=== PATIENT | female | born 1985 | race Caucasian/White ===

== ENCOUNTER 2016-10-12 14:05 | Emergency (ER) | payer OTHER, MEDICAID ==
--- NOTE | 2016-10-12 14:28 | ER Document Report ---
Addendum entered and electronically signed by JOSE MANUEL CHOUDHURY LCSWA 10/14/16 09: 53: ED Psych Disorder / Suicide - General Chief Complaint: Psych Problem Stated Complaint: SUICIDAL IDEATION Time Seen by Provider: 10/12/16 14:11 TRAVEL OUTSIDE OF THE [place] IN LAST 30 DAYS: No - HPI Notes: Clinician conducted check in with patient:10/14/2013 Patient states she is feeling calmer. Patient is noted to have euthymic mood with congruent affect ie smiling. Patient's conversational speech is also noted to be soft; no longer harsh as previously observed. Patient states she would like to go home but understands that a strong discharge plan would need to be in place since she previously had suicidal thoughts. Patient denies current suicidal/homicidal ideation. Patient's mother, Amber [phone] Clinician discussed with patient and mother the need to take medication and receive therapeutic services. Patient's mother agrees to be part of discharge plan to ensure the patient has no access to weapons or medications and follows up with outpatient mental health services. Diagnosis: 296.80 (F31.9) Unspecified Bipolar and Related Disorder by History, current episode Depressed Impression/Plan: Recommendation to rescind IVC; patient is considered psychiatrically cleared for discharge. Patient no longer meets IVC criteria per [place] GS 122C. Patient denies current suicidal ideation. Patient's affect and mood has been observed to return to baseline. Patient's current needs would be more appropriately addressed with therapeutic intervention with medication management in an outpatient setting. Patient's mother agrees to be part of discharge plan to ensure the patient has no access to weapons or medications and follows up with outpatient mental health services. Patient is recommended to receive Dialectical behavior therapy (DBT) and continued services with [facility] for medication management. Consulted with Dr. Ro regarding the management and care of patient. ED Physician in agreement with recommendations. - Related Data Allergies/Adverse Reactions: No Known Allergies Allergy (Verified 02/14/16 09:38) Discharge - Discharge Clinical Impression: Bipolar I disorder Condition: Stable Disposition: HOME, SELF-CARE Additional Instructions: Bipolar Disorder Bipolar disorder is also called manic-depressive disorder. Depression alternates with brain hyperactivity called indio. Each phase lasts from several days to a few weeks. We don't know exactly what causes bipolar disorder , but it's treatable. During the "manic phase," you may feel elated and energetic. You may have racing thoughts, rapid speech, increased activity, and grandiose ideas. During this time, you may not realize how poor your judgement is. Inappropriate spending, drug abuse, excessive alcohol use, marriage problems, and irresponsible sexual behavior are common during the manic phase. During the "depressive phase," you might feel depressed, guilty, worthless , fatigued, and unable to concentrate. You might have thoughts of suicide. Good treatments are available for bipolar disorder. [place] is a classic drug for bipolar disorder, and is still often useful. If the manic phase is very mild, an antidepressant alone can be prescribed. If the manic phase is very severe, an antipsychotic medicine (such as Haldol) may be needed. The treatment must be matched to your symptoms, so it's important to work closely with your psychiatric care provider. Contact your physician, the hospital emergency center, crisis line, or your counsellor if you are losing control or having self-destructive thoughts. SUICIDAL IDEATION: Suicidal ideation is a common medical term for thoughts about suicide, which may be as detailed as a formulated plan, without the suicidal act itself. Although most people who undergo suicidal ideation do not commit suicide, some go on to make suicide attempts. The range of suicidal ideation varies greatly from fleeting to detailed planning, role playing, and unsuccessful attempts. While thoughts about suicide are common, most people do not carry out serious actions to commit suicide. Based upon your evaluation and discussion with you, we do not believe you are currently at risk to act upon your thoughts of suicide. You have agreed to return to the Emergency Department, at any time , if you feel inclined to act upon your suicidal thoughts. FOLLOW-UP CARE: Please follow up with your outpatient mental health provider, [facility] in 3-5 days. You are recommended to receive Dialectical behavior therapy (DBT) in addition to medication management. If you experience worsening or a significant change in your symptoms, notify the physician immediately or return to the Emergency Department at any time for re-evaluation. Referrals: [facility] [Outside] - Follow up in 3-5 days Addendum entered and electronically signed by JOSE MANUEL CHOUDHURY LCSWA 10/13/16 13: 27: ED Psych Disorder / Suicide - General Chief Complaint: Psych Problem Stated Complaint: SUICIDAL IDEATION Time Seen by Provider: 10/12/16 14:11 TRAVEL OUTSIDE OF THE [place] IN LAST 30 DAYS: No - HPI Notes: Clinician conducted check in with patient: Patient is irritable with restricted affect. Patient's mother is at bedside. Patient states she is upset because her mental health provider did not change her medications, [facility] did. She continued to state she wanted [facility] to make those changes. Patient stated she was not even on an antidepressant, and she never took her Xanax she "flushed them down the toilet" so she should still have that prescription. Patient then stated she wanted to go home. Patient then stated she did not want her uncle walking in front of her door. Patient's mother states that even last night in the ED the patient was stating how she wants to kill herself. Patient's mother was able to calm the patient so she could understand the plan of care ie. changing medications and coming up with a discharge plan after therapeutic levels are achieved. Patient's mother states her paternal uncle is a security program manager here at [facility] and there is family friction and also requested he not been by her room. Diagnosis: 296.80 (F31.9) Unspecified Bipolar and Related Disorder by History, current episode Depressed Impression/Plan: Recommendation to continued IVC. Patient is irritable and still endorsing suicidal ideation. Patient requested staff member that is family to not walk past her room; clinician passed request on to security. Patient will be re-evaluated; possible discharge once therapeutic levels with medications. Consulted with Dr. Ro regarding the management and care of patient. ED Physician in agreement with recommendations. - Related Data Allergies/Adverse Reactions: No Known Allergies Allergy (Verified 02/14/16 09:38) Addendum entered and electronically signed by JEWELL ECHEVARRIA LPC 10/13/16 09: 40: ED Psych Disorder / Suicide - General Chief Complaint: Psych Problem Stated Complaint: SUICIDAL IDEATION Time Seen by Provider: 10/12/16 14:11 TRAVEL OUTSIDE OF THE [place] IN LAST 30 DAYS: No - HPI Notes: Conducted initial psychiatric evaluation on 10/12/2016 at 1555. Patient is a 31 year old female who presented to the ED today via EMS for SI. Patient reported she has had a lot going on, which started before today, and over time it has all built up. She stated she has relationship issues with her mother and brother, issues with her children, and legal issues. Patient became tearful when identifying her stressors. She stated "mentally and physically I am exhausted and done." She acknowledged her mother contacted her Medical Superintendent today, regarding her demeanor and behaviors, who suggested EMS be called so patient could be psychiatrically evaluated in the ED. She reported she has not taken her psychiatric medications prescribed by [facility] in 1-2 weeks because she "didn't feel like they were helping so why take them if they are not working." She could not provide names of medications but had brought the actual pill bottles with her and the attending nurse recorded them for lock up. They included: Saphris, Escitalopram, Gabapentin, Oxycarbazepine, and One A Day energy. She reported SI and commented how the last time she felt this way was 2014 when had an intentional overdose. She denied previous MH hospitalizations. Patient was alert and oriented x4. Mood was depressed with congruent affect AEB being tearful. She reported SI and a previous OD in 2014. She did not appear to be responding to internal stimuli AEB fair eye contact and carrying on dialogue conversation. Thought processes were linear. Conversational speech was soft in tone yet audible and understandable. Intellectual abilities are estimated to be average. Insight, judgment and impulse control are poor AEB depressed mood. Patient gave verbal consent to contact her youngest child's father, Ney ) for collateral if needed. Diagnosis: 296.80 (F31.9) Unspecified Bipolar and Related Disorder by History, current episode Depressed Impression/Plan: Recommendation to IVC patient. She reported SI, intentional OD attempt in 2014, presented with depressed mood, was tearful and unable to stop crying when identifying stressors, and has been of her prescribed psychiatric medications for 1-2 weeks. Will begin medication regimen and reassess in the morning. Consulted with Dr. Ro regarding the management and care of patient. ED Physician in agreement with recommendations. - Related Data Allergies/Adverse Reactions: No Known Allergies Allergy (Verified 02/14/16 09:38) Original Note: ED Psych Disorder / Suicide - General Chief Complaint: Psych Problem Stated Complaint: SUICIDAL IDEATION Time Seen by Provider: 10/12/16 14:11 Notes: Patient's been patient was brought to the emergency department by EMS after feeling suicidal. Patient receives care for bipolar disorder, depression, and anxiety at [facility], last visit about 2 weeks ago. Since that visit, she has not taken any of her medications because she does not think they are helping. Patient says that she cannot eat. Says that she has lost 6 pounds since last Monday, 5 days ago. She is tearful and says that she has felt this way before and attempted an overdose in the past. Currently, she is living with her mother and brother along with her 3 children, and she is not comfortable there. TRAVEL OUTSIDE OF THE [place] IN LAST 30 DAYS: No - Related Data Allergies/Adverse Reactions: No Known Allergies Allergy (Verified 02/14/16 09:38) Past Medical History - Social History Smoking Status: Current Every Day Smoker Family History: Reviewed & Not Pertinent Endocrine Medical History: Denies: Hx Diabetes Mellitus Type 2 Psychiatric Medical History: Reports: Hx Anxiety, Hx Bipolar Disorder, Hx Depression - Immunizations Immunizations up to date: Yes Hx Diphtheria, Pertussis, Tetanus Vaccination: Yes - 01/08/13 Review of Systems - Review of Systems Notes: REVIEW OF SYSTEMS: CONSTITUTIONAL : Denies fever. EENT: Denies eye, ear, nose or mouth or throat pain or other symptoms. CARDIOVASCULAR: Denies chest pain. RESPIRATORY: Denies cough, chest congestion, or shortness of breath. GASTROINTESTINAL: Denies abdominal pain or nausea, vomiting, or diarrhea. GENITOURINARY: Denies difficulty or painful urinating, urinary frequency, blood in urine. MUSCULOSKELETAL: Denies back or neck pain. Denies joint pain or swelling. SKIN: Denies rash or skin lesions. NEUROLOGICAL: Denies LOC or altered mental status. Denies headache. Denies sensory loss or motor deficits. ALL OTHER SYSTEMS REVIEWED AND NEGATIVE. Physical Exam - Vital signs Interpretation: Normal - Notes Notes: PHYSICAL EXAMINATION: GENERAL: Well-appearing, in no acute distress except tearful and depressed. Vital signs are all normal. HEAD: Atraumatic, normocephalic. EYES: Pupils equal round and reactive to light, extraocular movements intact. Oral: Moist mucous membranes embranes. NECK: Normal range of motion, supple. LUNGS: Breath sounds clear and equal bilaterally. HEART: Regular rate and rhythm without murmurs. ABDOMEN: Soft, nontender. No guarding or rebound. BACK: No tenderness throughout entire back. EXTREMITIES: Normal range of motion without pain. NEUROLOGICAL: Normal speech, normal gait. Normal sensory, motor, and reflex exams. Awake, alert, and oriented x3. Cranial nerves normal. PSYCH: Depressed. Tearful. SKIN: Warm, dry, no rashes. Course - Re-evaluation Re-evalutation: 10/12/16 14:28 I will have mental health evaluate the patient.
[2016-10-12 14:54] LABS: ABSOLUTE BASOPHILS # (AUTO) 0.1 10^3/uL (0.0-0.2); ABSOLUTE EOSINOPHILS # (AUTO) 0.2 10^3/uL (0.0-0.6); ABSOLUTE LYMPHOCYTES (AUTO) 2.7 10^3/uL (0.5-4.7); ABSOLUTE MONOCYTES (AUTO) 0.5 10^3/uL (0.1-1.4); ABSOLUTE NEUT (AUTO) 5.3 10^3/uL (1.7-8.2); BASOPHILS % (AUTO) 0.6 % (0-2); EOSINOPHILS % (AUTO) 2.5 % (0-6); HEMATOCRIT 47.5 % (36.0-47.0); HGB HCT DIFFERENCE 0.5; MEAN CORPUSCULAR HEMOGLOBIN 30.8 pg (27.0-33.4); MEAN CORPUSCULAR HGB CONC 33.6 g/dL (32.0-36.0); MEAN CORPUSCULAR VOLUME 92 fl (80-97); MONOCYTES % (AUTO) 5.7 % (3-13); RED BLOOD COUNT 5.18 10^6/uL (3.72-5.28); RED CELL DISTRIBUTION WIDTH 14.5 % (11.5-14.0); SEGMENTED NEUTROPHILS % (AUTO) 60.2 % (42-78); WHITE BLOOD COUNT 8.9 10^3/uL (4.0-10.5)
[2016-10-12 15:10] LABS: ALANINE AMINOTRANSFERASE 19 U/L (9-52); ALBUMIN 3.9 g/dL (3.5-5.0); ALCOHOL < 10 mg/dL (NONE DETECTED); ALKALINE PHOSPHATASE 53 U/L (38-126); ANION GAP 8 (5-19); ASPARTATE AMINO TRANSFERASE 32 U/L (14-36); BILIRUBIN,DIRECT 0.3 mg/dL (0.0-0.4); BILIRUBIN,TOTAL 0.5 mg/dL (0.2-1.3); BLOOD UREA NITROGEN 5 mg/dL (7-20); CARBON DIOXIDE 27 mmol/L (22-30); CHLORIDE 108 mmol/L (98-107); CREATININE RESULT 0.68 mg/dL (0.52-1.25); GLUCOSE 84 mg/dL (75-110); POTASSIUM 3.9 mmol/L (3.6-5.0); SODIUM 143.2 mmol/L (137-145)
[2016-10-12 16:17] LABS: APPEARANCE,URINE CLEAR; BILIRUBIN,URINE NEGATIVE (NEGATIVE); GLUCOSE, URINE NEGATIVE (NEGATIVE); KETONES,URINE NEGATIVE (NEGATIVE); LEUKOCYTE ESTERASE,URINE TRACE (NEGATIVE); NITRITE,URINE NEGATIVE (NEGATIVE); PROTEIN,URINE NEGATIVE (NEGATIVE); URINE SPECIFIC GRAVITY 1.004; UROBILINOGEN,URINE NEGATIVE mg/dL (<2.0)
[2016-10-12 16:30] LABS: URINE BARBITURATES SCREEN NEGATIVE; URINE METHADONE SCREEN NEGATIVE; URINE OPIATES LOW NEGATIVE; URINE PHENCYCLIDINE SCREEN NEGATIVE
--- NOTE | 2016-10-12 19:48 | EKG REPORT ---
SEVERITY:- BORDERLINE ECG - SINUS RHYTHM SHORT CO INTERVAL, ACCELERATED AV CONDUCTION : Confirmed by: Fred Anthony MD 12-Oct-2016 19:48:28
[2016-10-13] MEDS: BUSPIRONE HCL 10 MG TABLET PO SCH ×3 (06:00→20:11)
[2016-10-13] MEDS: DIVALPROEX SODIUM 500 MG TAB.SR.24H PO SCH (09:53)
--- NOTE | 2016-10-13 11:15 | ER Document Report ---
Doctor's Note Notes: 10/13/16 11:14 Rounds: Chart reviewed and patient interviewed. Patient seems to be doing much better this morning. Eating lunch. Denies feeling suicidal this morning. Vital signs have all been essentially normal. Lab studies have been essentially normal. Patient appears to be medically stable for transfer or discharge. Toshia Lewis MD
[2016-10-14] MEDS: DIVALPROEX SODIUM 500 MG TAB.SR.24H PO SCH (09:15)
[2016-10-14] MEDS: BUSPIRONE HCL 10 MG TABLET PO SCH (09:15)
--- NOTE | 2016-10-14 09:50 | ER Document Report ---
Doctor's Note Notes: 10/14/16 09:49 I have evaluated this pt. this am and she has no c/o at this time. She feels all of her needs are being met and her physical exam is normal. She is awaiting disposition per mental health.
[2016-10-14 10:24] VITALS: BP 112/70
== END 2016-10-14 10:24 | disposition home or self-care (01) ==
LOC: ER 14:05
DX: F31.9 Bipolar disorder, unspecified (principal); T43.596A Underdosing of other antipsychotics and neuroleptics, initial encounter; T43.226A Underdosing of selective serotonin reuptake inhibitors, initial encounter; Z91.128 Patient's intentional underdosing of medication regimen for other reason; Z91.14 Patient's other noncompliance with medication regimen; F41.9 Anxiety disorder, unspecified; T42.4X6A Underdosing of benzodiazepines, initial encounter; R45.851 Suicidal ideations; Z91.5 Personal history of self-harm; F17.200 Nicotine dependence, unspecified, uncomplicated
CPT/HCPCS: 93005; 99285; 36415; 80307 ×4; 84703; 85025; 80053; 81001; 93010; J3490 ×2

== ENCOUNTER 2016-11-20 16:32 | Emergency (ER) | payer MEDICAID, OTHER ==
--- NOTE | 2016-11-20 17:04 | ER Document Report ---
ED Medical Screen (RME) - General Chief Complaint: Facial Swelling Stated Complaint: FACE PAIN Time Seen by Provider: 11/20/16 17:04 Mode of Arrival: Ambulatory Information source: Patient Notes: 31 yr old female presents iwth complaints of bilateral lower extremity edema, left facial edema. I have greeted and performed a rapid initial assessment of this patient. A comprehensive ED assessment and evaluation of the patient, analysis of test results and completion of the medical decision making process will be conducted by additional ED providers. PHYSICAL EXAMINATION: GENERAL: Well-appearing, well-nourished and in no acute distress. HEAD: Atraumatic, normocephalic. EYES: Pupils equal round extraocular movements intact, conjunctiva are normal. ENT: Nares patent NECK: Normal range of motion LUNGS: No respiratory distress Musculoskeletal: Normal range of motion NEUROLOGICAL: Normal speech, normal gait. PSYCH: Normal mood, normal affect. SKIN: Warm, Dry, normal turgor, no rashes or lesions noted. TRAVEL OUTSIDE OF THE [place] IN LAST 30 DAYS: No - Related Data Allergies/Adverse Reactions: No Known Allergies Allergy (Verified 11/20/16 17:02) Past Medical History - Social History Chew tobacco use (# tins/day): No Frequency of alcohol use: Occasional Drug Abuse: None Family history: None Endocrine Medical History: Denies: Hx Diabetes Mellitus Type 2 Renal/ Medical History: Denies: Hx Peritoneal Dialysis Psychiatric Medical History: Reports: Hx Anxiety, Hx Bipolar Disorder, Hx Depression Surgical Hx: Negative - Immunizations Immunizations up to date: Yes Hx Diphtheria, Pertussis, Tetanus Vaccination: Yes - 01/08/13 Physical Exam - Vital signs Vitals: Temp Pulse Resp BP Pulse Ox 98.8 F 82 16 125/79 100 11/20/16 16:59 11/20/16 16:59 11/20/16 16:59 11/20/16 16:59 11/20/16 16:59 Course - Vital Signs Vital signs: Temp Pulse Resp BP Pulse Ox 98.8 F 82 16 125/79 100 11/20/16 16:59 11/20/16 16:59 11/20/16 16:59 11/20/16 16:59 11/20/16 16:59
--- NOTE | 2016-11-20 17:19 | ER Document Report ---
ED General - General Chief Complaint: Facial Swelling Stated Complaint: FACE PAIN Time Seen by Provider: 11/20/16 17:04 Notes: The patient is a 31-year-old female, past medical history bipolar, anxiety, diabetes, spinal meningitis in 2009, Cummins's Palsy in 2010, presents with 3 days of mild left sided facial drooping that her mom said is a little worse than before. Patient is noticing mild tingling in her left face, but denies numbness , difficulty swallowing, injury, headache, chest pain, shortness of breath, fevers, rash, neck stiffness, fevers or recent camping. TRAVEL OUTSIDE OF THE [place] IN LAST 30 DAYS: No - Related Data Allergies/Adverse Reactions: No Known Allergies Allergy (Verified 11/20/16 17:02) Past Medical History - General Information source: Patient - Social History Smoking Status: Never Smoker Chew tobacco use (# tins/day): No Frequency of alcohol use: Occasional Drug Abuse: None Family History: Reviewed & Not Pertinent Patient has suicidal ideation: No Patient has homicidal ideation: No Endocrine Medical History: Denies: Hx Diabetes Mellitus Type 2 Renal/ Medical History: Denies: Hx Peritoneal Dialysis Psychiatric Medical History: Reports: Hx Anxiety, Hx Bipolar Disorder, Hx Depression Surgical Hx: Negative - Immunizations Immunizations up to date: Yes Hx Diphtheria, Pertussis, Tetanus Vaccination: Yes - 01/08/13 Review of Systems - Review of Systems Notes: REVIEW OF SYSTEMS: CONSTITUTIONAL: -fevers, -chills EENT: -eye pain, -difficulty swallowing, -nasal congestion CARDIOVASCULAR:-chest pain, -syncope. RESPIRATORY: -cough, -SOB GASTROINTESTINAL: -abdominal pain, -nausea, -vomiting, -diarrhea GENITOURINARY: -dysuria, -hematuria MUSCULOSKELETAL: -back pain, -neck pain SKIN: -rash or skin lesions. HEMATOLOGIC: -easy bruising or bleeding. LYMPHATIC: -swollen, enlarged glands. NEUROLOGICAL: -altered mental status or loss of consciousness, -headache, +left facial droop PSYCHIATRIC: -anxiety, -depression. ALL OTHER SYSTEMS REVIEWED AND NEGATIVE. Physical Exam - Vital signs Vitals: Temp Pulse Resp BP Pulse Ox 98.8 F 82 16 125/79 100 11/20/16 16:59 11/20/16 16:59 11/20/16 16:59 11/20/16 16:59 11/20/16 16:59 - Notes Notes: PHYSICAL EXAMINATION: GENERAL: Well-appearing, well-nourished and in no acute distress. HEAD: Atraumatic, normocephalic. EYES: Pupils equal round and reactive to light, extraocular movements intact, sclera anicteric, conjunctiva are normal. ENT: nares patent, oropharynx clear without exudates. Moist mucous membranes. NECK: Normal range of motion, supple without lymphadenopathy LUNGS: Breath sounds clear to auscultation bilaterally and equal. No wheezes rales or rhonchi. HEART: Regular rate and rhythm without murmurs ABDOMEN: Soft, nontender, normoactive bowel sounds. No guarding, no rebound. No masses appreciated. EXTREMITIES: Normal range of motion, no pitting or edema. No cyanosis. NEUROLOGICAL: Mild loss of left nasolabial fold. Able to puff cheeks, symmetric smile, able to wrinkle forehead. Normal speech, normal gait. Normal sensory and motor exams. PSYCH: Normal mood, normal affect. SKIN: Warm, Dry, normal turgor, no rashes or lesions noted. Course - Re-evaluation Re-evalutation: Patient's head CT does not show any acute bleeds or signs of acute CVA. She has mild loss of left nasolabial fold, but no other symptoms. She said that she has some chronic left facial drooping and unsure if this is acute or chronic. Her symptoms do not appear to be consistent with Cummins's palsy or zoster at this time. If this is a mild CVA, her NIHSS is 1 and her ABCD2 score is 2. She is not a TPA candidate due to several days of symptoms and mild severity. She is safe for follow-up at her neurologist for further evaluation and treatment. - Vital Signs Vital signs: Temp Pulse Resp BP Pulse Ox 98.8 F 82 16 125/79 100 11/20/16 16:59 11/20/16 16:59 11/20/16 16:59 11/20/16 16:59 11/20/16 16:59 - Laboratory Result Diagrams: 11/20/16 17:10 11/20/16 17:10 Laboratory results interpreted by me: 11/20/16 17:10 RDW 14.4 H - Diagnostic Test Radiology reviewed: Image reviewed, Reports reviewed Radiology results interpreted by me: CT HEAD: NAD Discharge - Discharge Clinical Impression: Facial droop Condition: Stable Disposition: HOME, SELF-CARE Additional Instructions: You must follow-up with the neurologist for further evaluation and treatment. [place]' Palsy You may have Cummins's Palsy -- a paralysis of certain muscles of the face. It's caused by a temporary paralysis of the nerve which controls the muscles. The cause is unknown, but it's thought to be caused by a virus in most cases. The physician's exam shows that this is NOT a stroke. Cummins's Palsy usually gets better by itself. There is no cure. Sometimes cortisone-type medication is given to decrease nerve swelling. This problem is usually temporary, lasting about three weeks. During that time, you must protect the eye from injury (because the eyelid muscles often do not cover it). Ointment or a patch may be necessary. Be sure to follow up as instructed, and call the doctor at once if new symptoms arise. Report any eye pain, decreasing vision or double vision, or any numbness or weakness outside the face area. Referrals: CARLOS MANUEL SANTANA PA [Primary Care Provider] - Follow up as needed TOM ALCALA MD [ACTIVE STAFF] - Follow up as needed
[2016-11-20 17:27] LABS: ABSOLUTE BASOPHILS # (AUTO) 0.1 10^3/uL (0.0-0.2); ABSOLUTE EOSINOPHILS # (AUTO) 0.1 10^3/uL (0.0-0.6); ABSOLUTE LYMPHOCYTES (AUTO) 1.9 10^3/uL (0.5-4.7); ABSOLUTE MONOCYTES (AUTO) 0.5 10^3/uL (0.1-1.4); ABSOLUTE NEUT (AUTO) 4.2 10^3/uL (1.7-8.2); BASOPHILS % (AUTO) 0.8 % (0-2); EOSINOPHILS % (AUTO) 1.9 % (0-6); HEMATOCRIT 41.1 % (36.0-47.0); HEMOGLOBIN 14.1 g/dL (12.0-15.5); HGB HCT DIFFERENCE 1.2; LYMPHOCYTES % (AUTO) 27.5 % (13-45); MEAN CORPUSCULAR HEMOGLOBIN 32.4 pg (27.0-33.4); MEAN CORPUSCULAR HGB CONC 34.2 g/dL (32.0-36.0); MEAN CORPUSCULAR VOLUME 95 fl (80-97); MONOCYTES % (AUTO) 7.3 % (3-13); RED BLOOD COUNT 4.34 10^6/uL (3.72-5.28); RED CELL DISTRIBUTION WIDTH 14.4 % (11.5-14.0); SEGMENTED NEUTROPHILS % (AUTO) 62.5 % (42-78); WHITE BLOOD COUNT 6.8 10^3/uL (4.0-10.5)
[2016-11-20 17:41] LABS: ALANINE AMINOTRANSFERASE 43 U/L (9-52); ALBUMIN 4.1 g/dL (3.5-5.0); ALKALINE PHOSPHATASE 63 U/L (38-126); ANION GAP 8 (5-19); ASPARTATE AMINO TRANSFERASE 35 U/L (14-36); BILIRUBIN,DIRECT 0.3 mg/dL (0.0-0.4); BILIRUBIN,TOTAL 0.4 mg/dL (0.2-1.3); BLOOD UREA NITROGEN 14 mg/dL (7-20); CALCIUM 9.5 mg/dL (8.4-10.2); CARBON DIOXIDE 29 mmol/L (22-30); CHLORIDE 106 mmol/L (98-107); CREATININE RESULT 0.73 mg/dL (0.52-1.25); GLUCOSE 80 mg/dL (75-110); SODIUM 142.5 mmol/L (137-145); TOTAL PROTEIN 6.9 g/dL (6.3-8.2)
--- NOTE | 2016-11-20 17:41 | RADIOLOGY REPORT (SQ) ---
EXAM DESCRIPTION: CT HEAD WITHOUT COMPLETED DATE/TIME: 11/20/2016 5:32 pm REASON FOR STUDY: left facial swelling , hx cva, left sided weakness COMPARISON: None. TECHNIQUE: Axial images acquired through the brain without intravenous contrast. Images reviewed wi th bone, brain and subdural windows. Images stored on PACS. All CT scanners at this facility use dose modulation, iterative reconstruction, and/or weight based d osing when appropriate to reduce radiation dose to as low as reasonably achievable (ALARA). [facility]: Dose Right [facility]: CareDose [facility]: Dose Right [facility]: Teradose 4D [facility]: Smart [employer] RADIATION DOSE: Up-to-date CT equipment and radiation dose reduction techniques were employed. CTDIv ol: 64.6 mGy. DLP: 1163 mGy-cm. mGy. LIMITATIONS: None. FINDINGS: VENTRICLES: Normal size and contour. CEREBRUM: No masses. No hemorrhage. No midline shift. Normal pierce/white matter differentiation. N o evidence for acute infarction. CEREBELLUM: No masses. No hemorrhage. No alteration of density. No evidence for acute infarction. EXTRAAXIAL SPACES: No fluid collections. No masses. ORBITS AND GLOBE: No intra- or extraconal masses. Normal contour of globe without masses. CALVARIUM: No fracture. PARANASAL SINUSES: No fluid or mucosal thickening. SOFT TISSUES: No mass or hematoma. OTHER: No other significant finding. IMPRESSION: NORMAL BRAIN CT WITHOUT CONTRAST. TECHNICAL DOCUMENTATION: JOB ID: [id number] Quality ID # [id number]: Final reports with documentation of one or more dose reduction techniques (e.g., Au tomated exposure control, adjustment of the mA and/or kV according to patient size, use of iterative reconstruction technique) 2010 [employer]- All Rights Reserved
[2016-11-20 18:28] VITALS: BP 135/80
== END 2016-11-20 18:28 | disposition home or self-care (01) ==
LOC: ER 16:32
DX: R29.810 Facial weakness (principal); R20.2 Paresthesia of skin; E11.9 Type 2 diabetes mellitus without complications
CPT/HCPCS: 36415; 70450; 80053; 84703; 85025; 99284

== ENCOUNTER 2017-06-24 10:58 | Outpatient (CLI) | payer MEDICAID ==
[2017-06-24 12:17] LABS: APPEARANCE,URINE SLIGHTLY-CLOUDY; BILIRUBIN,URINE NEGATIVE (NEGATIVE); CALCIUM OXALATE CRYSTALS,URINE MODERATE /HPF; COLOR,URINE AMBER; GLUCOSE, URINE NEGATIVE (NEGATIVE); KETONES,URINE NEGATIVE (NEGATIVE); LEUKOCYTE ESTERASE,URINE LARGE (NEGATIVE); NITRITE,URINE NEGATIVE (NEGATIVE); PROTEIN,URINE NEGATIVE (NEGATIVE); URINE SPECIFIC GRAVITY 1.023
[2017-06-24 12:17] LABS: AMNISURE (ROM) NEGATIVE (NEGATIVE)
[2017-06-24 12:30] LABS: URINE AMPHETAMINES SCREEN NEGATIVE; URINE BARBITURATES SCREEN NEGATIVE; URINE COCAINE SCREEN NEGATIVE; URINE MARIJUANA (THC) SCREEN NEGATIVE; URINE METHADONE SCREEN NEGATIVE; URINE PHENCYCLIDINE SCREEN NEGATIVE
[2017-06-24 12:34] LABS: URINE BENZODIAZEPINES SCREEN UNCONFIRMED POSITIVE
[2017-06-24 13:09] LABS: BACTERIA (WET MOUNT) 4+ BACTERIA SEEN; EPITHELIALS (WET MOUNT) 4+ EPITHELIALS SEEN; T.VAGINALIS (WET MOUNT) TRICHOMONAS SEEN; WBCS (WET MOUNT) 4+ WBCS SEEN; YEAST (WET MOUNT) NO YEAST SEEN
[2017-06-24] MEDS ORDERED: METRONIDAZOLE 500 MG TABLET PO ONE (13:28)
[2017-06-24] MEDS ORDERED: METRONIDAZOLE 500 MG TABLET ONE (13:33)
[2017-06-24 14:36] LABS: CHLAM PCR NOT DETECTED (NOT DETECT); GON PCR NOT DETECTED (NOT DETECT)
== END 2017-06-24 13:48 | disposition home or self-care (01) ==
LOC: EDSTATUS 11:11 → LC 11:35
PROVIDERS: ATTEND Obstetrics & Gynecology
PROC: 4A1HXCZ Monitoring of Products of Conception, Cardiac Rate, External Approach (ICD-10-PCS; principal; 2017-06-24)
DX: O98.313 Other infections with a predominantly sexual mode of transmission complicating pregnancy, third trimester (principal); A59.9 Trichomoniasis, unspecified; Z3A.30 30 weeks gestation of pregnancy; Z79.899 Other long term (current) drug therapy
CPT/HCPCS: 59899; 84112; 87210; 81001; 80307; 87491; 87591; Q0114; J3490

== ENCOUNTER 2017-09-10 14:08 | Outpatient (CLI) | payer MEDICAID ==
[2017-09-10 15:11] LABS: BACTERIA (WET MOUNT) 4+ BACTERIA SEEN; EPITHELIALS (WET MOUNT) 3+ EPITHELIALS SEEN; RBCS (WET MOUNT) FEW RBCS SEEN; T.VAGINALIS (WET MOUNT) TRICHOMONAS SEEN; WBCS (WET MOUNT) 4+ WBCS SEEN; YEAST (WET MOUNT) NO YEAST SEEN
[2017-09-10 15:22] LABS: APPEARANCE,URINE CLOUDY; BILIRUBIN,URINE NEGATIVE (NEGATIVE); COLOR,URINE AMBER; GLUCOSE, URINE NEGATIVE (NEGATIVE); KETONES,URINE NEGATIVE (NEGATIVE); LEUKOCYTE ESTERASE,URINE LARGE (NEGATIVE); NITRITE,URINE NEGATIVE (NEGATIVE); PROTEIN,URINE 30 mg/dL (NEGATIVE); URINE SPECIFIC GRAVITY 1.018
[2017-09-10] MEDS ORDERED: METRONIDAZOLE 500 MG TABLET PO ONE (15:36)
[2017-09-10] MEDS ORDERED: METRONIDAZOLE 500 MG TABLET ONE (15:36)
[2017-09-10 15:50] LABS: URINE AMPHETAMINES SCREEN NEGATIVE; URINE BARBITURATES SCREEN NEGATIVE; URINE COCAINE SCREEN NEGATIVE; URINE MARIJUANA (THC) SCREEN NEGATIVE; URINE METHADONE SCREEN NEGATIVE; URINE PHENCYCLIDINE SCREEN NEGATIVE
[2017-09-10 15:57] LABS: URINE BENZODIAZEPINES SCREEN UNCONFIRMED POSITIVE
[2017-09-10 16:49] LABS: CHLAM PCR NOT DETECTED (NOT DETECT); GON PCR NOT DETECTED (NOT DETECT)
[2017-09-19 16:39] LABS: BENZODIAZEPINE CONFIRMATION UR Negative (Cutoff=300)
== END 2017-09-10 18:00 | disposition home or self-care (01) ==
LOC: LC 14:08
PROVIDERS: ATTEND Student in an Organized Health Care Education/Training Program
PROC: 4A1HXCZ Monitoring of Products of Conception, Cardiac Rate, External Approach (ICD-10-PCS; principal; 2017-09-10)
DX: O36.8130 Decreased fetal movements, third trimester, not applicable or unspecified (principal); O99.333 Smoking (tobacco) complicating pregnancy, third trimester; Z3A.37 37 weeks gestation of pregnancy
CPT/HCPCS: 59025; 87210; 81005; 80307; 87491; 87591; 80361; G0480 ×2; J3490

== ENCOUNTER 2017-09-25 12:06 | Outpatient (CLI) | payer MEDICAID ==
[2017-09-25] MEDS ORDERED: RINGERS SOLUTION,LACTATED 1,000 ML IV PRN (12:28)
[2017-09-25 13:02] LABS: APPEARANCE,URINE SLIGHTLY-CLOUDY; BILIRUBIN,URINE NEGATIVE (NEGATIVE); COLOR,URINE YELLOW; GLUCOSE, URINE NEGATIVE (NEGATIVE); KETONES,URINE NEGATIVE (NEGATIVE); LEUKOCYTE ESTERASE,URINE TRACE (NEGATIVE); NITRITE,URINE NEGATIVE (NEGATIVE); PROTEIN,URINE NEGATIVE (NEGATIVE); URINE SPECIFIC GRAVITY 1.023
[2017-09-25 13:30] LABS: URINE AMPHETAMINES SCREEN NEGATIVE; URINE BARBITURATES SCREEN NEGATIVE; URINE COCAINE SCREEN NEGATIVE; URINE MARIJUANA (THC) SCREEN NEGATIVE; URINE METHADONE SCREEN NEGATIVE; URINE PHENCYCLIDINE SCREEN NEGATIVE
[2017-09-25 13:37] LABS: BACTERIA (WET MOUNT) 3+ BACTERIA SEEN; EPITHELIALS (WET MOUNT) 3+ EPITHELIALS SEEN; T.VAGINALIS (WET MOUNT) NO TRICHOMONAS SEEN; WBCS (WET MOUNT) 1+ WBCS SEEN; YEAST (WET MOUNT) NO YEAST SEEN
[2017-09-25 13:44] LABS: URINE BENZODIAZEPINES SCREEN UNCONFIRMED POSITIVE
--- NOTE | 2017-09-25 14:25 | Non Stress Test Report ---
Non Stress Test Datetime Report Generated by CPN: 09/25/2017 14:25 DEMOGRAPHIC EGA NST: 40.0 EGA NST: 37.5 INDICATION Indication for Study: Ordered by Provider Indication for Study: Ordered by Provider VITAL SIGNS Temperature - NST: 98.0 RESP - NST: 18 MONITORING Monitor Explained: Monitor Explained; Test Explained; Patient Verbalized Understanding Monitor Explained: Monitor Explained; Patient Verbalized Understanding Time on Monitor: 09/25/2017 11:57 Time on Monitor: 09/09/2017 14:46 Time off Monitor: 09/25/2017 14:18 Time off Monitor: 09/25/2017 14:18 Time off Monitor: 09/09/2017 15:17 NST Duration: 141 NST Duration: 31 NST INTERVENTIONS NST Interventions: PO Hydration NST Interventions: PO Hydration; Reposition Patient Physician Notified NST: Katey CNM Physician Notified NST: Dr. Jacobo BABY A: [id number] BABY A Movement : Present Movement : Present Contraction Frequency : X1 Contraction Frequency : 0 FHR Baseline : 125 FHR Baseline : 135 Accelerations : 15X15 Accelerations : 15X15 Decelerations : None Decelerations : None Variability : Moderate 6-25bpm Variability : Moderate 6-25bpm NST Review: Meets Criteria for Reactive NST NST Review: Meets Criteria for Reactive NST NST Review and Verified By : MONTSERRAT ARAYA RN NST Results: Reactive NST Results: Reactive NST REPORT Report Trigger: Send Report
[2017-09-25 15:08] LABS: CHLAM PCR NOT DETECTED (NOT DETECT); GON PCR NOT DETECTED (NOT DETECT)
== END 2017-09-25 14:23 | disposition home or self-care (01) ==
LOC: LC 12:06
PROVIDERS: ATTEND Student in an Organized Health Care Education/Training Program
PROC: 4A1HXCZ Monitoring of Products of Conception, Cardiac Rate, External Approach (ICD-10-PCS; principal; 2017-09-25)
DX: O48.0 Post-term pregnancy (principal); Z3A.40 40 weeks gestation of pregnancy
CPT/HCPCS: 59025; 87210; 81001; 80307; 80345; 87491; 87591; 80361; G0480

== ENCOUNTER 2017-09-26 05:55 | Inpatient (IN) | payer MEDICAID ==
[2017-09-26] MEDS ORDERED: MISOPROSTOL 0.2 MG TABLET ONE (06:00)
[2017-09-26] MEDS ORDERED: OXYTOCIN/NORMAL SALINE 20 UNIT/1,000 ML RTUINJ ONE (06:00)
[2017-09-26] MEDS ORDERED: LIDOCAINE 1% INJ-PF (10 MG/ML) 30 ML SDV ONE (06:00)
[2017-09-26] MEDS ORDERED: RINGERS SOLUTION,LACTATED 1,000 ML IV PRN (06:27)
[2017-09-26] MEDS ORDERED: RINGERS SOLUTION,LACTATED 1,000 ML IV ONE (06:27)
[2017-09-26] MEDS ORDERED: NA PHOS,M-B/NA PHOS,DI-BA (ADULT) 133 ML ENEMA PR PRN (06:30)
[2017-09-26] MEDS ORDERED: DIPH/PERTUSS(ACELL)/TETANUS VAC/PF 0.5 ML SYR (>=10YO) IM PRN (06:30)
[2017-09-26] MEDS ORDERED: ACETAMINOPHEN WITH CODEINE #3 TABLET PO PRN ×2 (06:30)
[2017-09-26] MEDS ORDERED: PROMETHAZINE HCL 25 MG TABLET PO PRN (06:30)
[2017-09-26] MEDS ORDERED: PROMETHAZINE HCL 25 MG SUPP.RECT PR PRN (06:30)
[2017-09-26] MEDS ORDERED: PROMETHAZINE HCL INJ 25 MG/1 ML VIAL IV PRN (06:30)
[2017-09-26] MEDS ORDERED: OXYTOCIN/NORMAL SALINE 20 UNIT/1,000 ML RTUINJ IV PRN (06:30)
[2017-09-26] MEDS ORDERED: DIBUCAINE 1% OINTMENT 28 GM TP PRN (06:30)
[2017-09-26] MEDS ORDERED: ZOLPIDEM TARTRATE 5 MG TABLET PO PRN (06:30)
[2017-09-26] MEDS ORDERED: MAGNESIUM HYDROXIDE SUSP 30 ML UDCUP PO PRN (06:30)
[2017-09-26] MEDS ORDERED: PSEUDOEPHEDRINE HCL 30 MG TABLET PO PRN (06:30)
[2017-09-26] MEDS ORDERED: DIPHENHYDRAMINE HCL 25 MG CAPSULE PO PRN (06:30)
[2017-09-26] MEDS ORDERED: GLYCERIN/WITCH HAZEL LEAF 1 EACH MED..PAD TP PRN (06:30)
[2017-09-26] MEDS ORDERED: BENZOCAINE/MENTHOL AEROSOL SPRAY 56 ML TOP PRN (06:30)
[2017-09-26] MEDS ORDERED: ACETAMINOPHEN 325 MG TABLET PO PRN (06:30)
[2017-09-26] MEDS ORDERED: MEASLES,MUMPS&RUBELLA VACC/PF 0.5 ML VIAL SUBCUT PRN (06:30)
--- NOTE | 2017-09-26 06:44 | Admission Physical ---
Datetime Report Generated by CPN: 09/26/2017 06:43 CURRENT ADMISSION Chief Complaint: Uterine Contractions Indication for Induction: Not Applicable Admit Impression : Term, Intrauterine ; Active Labor Admit Plan: Admit to Unit; Initiate Labor Protocol ALLERGIES Medication Allergies: No Medication Allergies: No Known Allergies (09/25/2017) Latex: No Latex Allergies Food Allergies: None Environmental Allergies: None OBSTETRICAL HISTORY EDC: 09/25/2017 00:00 : 6 Para: 3 Term: 3 : 0 SAB: 0 IAB: 2 Ectopic: 0 Livin Cesareans: 0 VBACs: 0 Multiple Births: 0 Gestational Diabetes: No Rh Sensitization: No Incompetent Cervix: No HAI: No Infertility: No ART Treatment: No Uterine Anomaly: No IUGR: No Hx Previous C/S: No Macrosomia: No Hx Loss/Stillborn: No PIH: No Hx : No Placenta Previa/Abruption: No Depression/PP Depression: No PTL/PROM: No Post Hemorrhage: No Current Procedures: Ultrasound Obstetrical History Comments: G1 2004 baby girl G2 2008 boy G3 2008 EAB G4 2009 EAB G5 2012 boy G6 current SEE RECORDS Alcohol: No Marijuana : No Cocaine: No Other Illicit Drugs: No Cigarettes: Current Some Day Smoker. 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 Surgery: No Heart Disease: No Hosp/Surgery: No Autoimmune Disorder: No Anesthetic Complications: No Kidney Disease: No Abnormal Pap Smear: No Neuro/Epilepsy: No Psychiatric Disorders: Yes Other Medical Diseases: No Hepatitis/Liver Disease: No Significant Family History: No Varicosities/Phlebitis: No Trauma/Violence : No Thyroid Dysfunction: No Medical History Comments: Anxiety - takes xanax, Bipolar and depression (no meds) INFECTIOUS HISTORY Gonorrhea: No Genital Herpes: No Chlamydia: No Tuberculosis: No Syphilis: No Hepatitis: No HIV/AIDS Exposure: No Rash or Viral Illness: No HPV: No Infectious History Comments: Trichamonas - 06/24/17, treated w/ flagyl PHYSICAL EXAM General: Normal HEENT: Normal Neurologic: Normal Thyroid: Deferred Heart: Normal Lungs: Normal Breast: Deferred Back: Normal Abdomen: Normal Genitourinary Exam: Normal Extremities: Normal DTRs: Normal Pelvic Type: Adequate Vital Signs: Reviewed VAGINAL EXAM Dilatation: 8 Effacement: 100 Station: 1 Contraction Comments: q 3 MEMBRANES Membranes: Intact FETUS A EGA: 40.1 Monitoring: External US FHR- Baseline: 60 Variability: Moderate 6-25bpm Accelerations: 15X15 Presentation: Vertex Admit Comment: 32yo at 40+1ega presents with regular uterine ctx. Cvx 8cm with bulging bag and baby in 60-70s upon arrival to L_D. Maternal position change/O2 and AROM and FSE placed. FHR improved to 120s with moderate variabilty. IV finally obtained and cvx re-examined. C/C/+4. Nursery called for imminent delivery with FHR deceleration of unknown length of time. Thick yellow heavy particulate mec noted at AROM. trichomonas negative earlier in day on 09/25. in [facility] during preg. Bipolar disorder. Desires BTL. PLANS FOR LABOR AND DELIVERY Pain Management: Epidural Feeding Preference: Formula Benefit of Breast Feed Discussed: Yes Circumcision: Yes INFORMED CONSENT Informed Consent Obtained: Vaginal Delivery; Risks, Benefits and Alternatives Discussed Signature: with User ID: [email or web address]
[2017-09-26 06:47] LABS: ABSOLUTE BASOPHILS # (AUTO) 0.1 10^3/uL (0.0-0.2); ABSOLUTE EOSINOPHILS # (AUTO) 0.1 10^3/uL (0.0-0.6); ABSOLUTE LYMPHOCYTES (AUTO) 3.1 10^3/uL (0.5-4.7); ABSOLUTE MONOCYTES (AUTO) 0.7 10^3/uL (0.1-1.4); ABSOLUTE NEUT (AUTO) 10.5 10^3/uL (1.7-8.2); BASOPHILS % (AUTO) 0.7 % (0-2); EOSINOPHILS % (AUTO) 0.8 % (0-6); HEMATOCRIT 38.8 % (36.0-47.0); HEMOGLOBIN 13.3 g/dL (12.0-15.5); LYMPHOCYTES % (AUTO) 21.5 % (13-45); MEAN CORPUSCULAR HGB CONC 34.3 g/dL (32.0-36.0); MEAN CORPUSCULAR VOLUME 85 fl (80-97); MONOCYTES % (AUTO) 5.1 % (3-13); PLATELET COUNT 272 10^3/uL (150-450); RED BLOOD COUNT 4.59 10^6/uL (3.72-5.28); RED CELL DISTRIBUTION WIDTH 13.1 % (11.5-14.0); SEGMENTED NEUTROPHILS % (AUTO) 71.9 % (42-78); TOTAL CELLS COUNTED % (AUTO) 100 %; WHITE BLOOD COUNT 14.6 10^3/uL (4.0-10.5)
--- NOTE | 2017-09-26 09:01 | Delivery Summary ---
Del Sum A-C Datetime Report Generated by CPN: 09/26/2017 09:01 DELIVERY PERSONNEL DELIVERY PERSONNEL: [id number] Delivery Doctor:: Ernestina Jacobo MD Labor and Delivery Nurse:: Raissa Larsen RN Labor and Delivery Nurse:: Ana Lilia Correa RN Deli Associate:: Rama Jacobs RN Nursery Nurse:: Alejandra Crawofrd RN MSN Nursery Nurse:: Marisela Polanco RN Truck Packer/TELECOMMUNICATIONS FIELD ENGINEER: Elodia Alvarez TELECOMMUNICATIONS FIELD ENGINEER MATERNAL INFORMATION Delivery Anesthesia: None Medications After Delivery: Pitocin Drip 20 Units/1000ml NSS Maternal Complications: Precipitous Labor (<3hrs) Complication Details: thick particulate meconium Provider Comments: VMI delivered in SHANIA presentation. No nuchal cord. Shoulders and body delivered without difficulty. Cord double clamped and cut and to NICU personnel. Placenta delivered intact spontaneously. FF at U. No e/o retianed POC on manual evacuation. No perineal lacerations noted. Good hemostasis. Mother stable upon provider leaving the room. Baby to NICU LABOR SUMMARY EDC: 09/25/2017 00:00 No. Babies in Womb: 1 Attempted: No Labor Anesthesia: None LABOR INFORMATION Reason for Induction: Not Applicable Onset of Labor: 09/26/2017 04:45 Complete Dilatation: 09/26/2017 06:17 Oxytocin: N/A Group B Beta Strep: Negative Antibiotics # of Doses: 0 Steroids Given: None Reason Steroids Not Administered: Not Applicable MEMBRANES Membranes Rupture Method: Artificial Rupture of Membranes: 09/26/2017 06:03 Length of Rupture (hr): 0.28 Amniotic Fluid Color: Heavy Meconium Amniotic Fluid Amount: Moderate Amniotic Fluid Odor: Normal STAGES OF LABOR Stage 1 hr: 1 Stage 1 min: 32 Stage 2 hr: 0 Stage 2 min: 3 Stage 3 hr: 0 Stage 3 min: 2 Total Time in Labor hr: 1 Total Time in Labor min: 37 VAGINAL DELIVERY Episiotomy: None Laceration #1: None Laceration Extension #1: N/A Laceration Repair: Not Applicable Sponge Count Correct: N/A Sharps Count Correct: N/A CSECTION DELIVERY Primary Indication: N/A Secondary Indication: N/A CSection Incidence: N/A Labor: N/A Elective: N/A CSection Incision: N/A BABY A INFORMATION Delivery Date/Time: 09/26/2017 06:20 Method of Delivery: Vaginal Born in Route : No : N/A Forceps: N/A Vacuum Extraction: N/A Shoulder Dystocia : No PRESENTATION/POSITION BABY A Presentation: Cephalic Cephalic Presentation: Vertex Vertex Position: Right Occipital Anterior Breech Presentation: N/A PLACENTA INFORMATION BABY A Placenta Delivery Time : 09/26/2017 06:22 Placenta Method of Delivery: Spontaneous Placenta Status: Delivered SCORES BABY A Heart Rate 1 min: >100 bpm Resp Effort 1 min: Slow, Irregular Reflex Irritability 1 min: Grimace Muscle Tone 1 min: Some Flexion of Extremities Color 1 min: Blue/Pale Resuscitation Effort 1 min: Tactile Stimulation; Oxygen; PPV/NCPAP SCORE 1 MIN: 5 Heart Rate 5 min: >100 bpm Resp Effort 5 min: Slow, Irregular Reflex Irritability 5 min: Cough or Sneeze or Pulls Away Muscle Tone 5 min: Active Motion Color 5 min: Body [place], Extremities Blue Resuscitation Effort 5 min: Tactile Stimulation; Oxygen; PPV/NCPAP SCORE 5 MIN: 8 INFORMATION BABY A Gestational Age at Delivery: 40.1 Gestational Status: Full Term- 39- 40.6 Weeks Infant Outcome : Liveborn Infant Condition : Fair Infant Sex: Male IDENTIFICATION BABY A Verification Date/Time: 09/26/2017 06:48 ID Band Number: [id number] Mother's Name Verified: Yes Infant RN Verifying : S. Abdirahmantibrosamariair, RNC Additional Verifying Personnel: Dr. Jacobo CORD INFORMATION BABY A No. Cord Vessels: 3 Nuchal Cord : N/A Cord Blood Taken: Yes-For Storage (Mom's Blood type +) ASSESSMENT BABY A Complications: Extended Bradycardia; Meconium Physical Findings at Delivery: Molding of the Head; Puncture Wound from Scalp Electrode Respirations: Grunting; Nasal Flaring; Sternal Retractions; Tachypnea Skin to Skin: No Collections Director/ALS Called : Yes Care By: Alicia Crawford RN Transferred To: NICU BABY B INFORMATION : N/A SIGNATURES Signature: with User ID: [email or web address]
--- NOTE | 2017-09-26 09:08 | Warning Signs in Babies ---
VOD Warning Signs Datetime Report Generated by [facility]: 09/26/2017 09:08 VOD#608 -Warning Signs in Babies: Needs to be viewed. (06/24/2017 11:34:Jackie Mendez RN)
[2017-09-26 09:11] LABS: APPEARANCE,URINE SLIGHTLY-CLOUDY; BILIRUBIN,URINE NEGATIVE (NEGATIVE); COLOR,URINE AMBER; GLUCOSE, URINE NEGATIVE (NEGATIVE); KETONES,URINE TRACE mg/dL (NEGATIVE); LEUKOCYTE ESTERASE,URINE NEGATIVE (NEGATIVE); NITRITE,URINE NEGATIVE (NEGATIVE); PROTEIN,URINE 100 mg/dL (NEGATIVE); URINE SPECIFIC GRAVITY 1.019
[2017-09-26 09:29] LABS: URINE AMPHETAMINES SCREEN NEGATIVE; URINE BARBITURATES SCREEN NEGATIVE; URINE COCAINE SCREEN NEGATIVE; URINE MARIJUANA (THC) SCREEN NEGATIVE; URINE METHADONE SCREEN NEGATIVE; URINE PHENCYCLIDINE SCREEN NEGATIVE
[2017-09-26 09:31] LABS: URINE BENZODIAZEPINES SCREEN UNCONFIRMED POSITIVE
--- NOTE | 2017-09-26 09:38 | PDOC PROGRESS REPORT ---
Subjective-OB Progress Note for:: 09/26/17 Subjective: baby not doing well, going to be transferred to [facility], pt desires to be discharged ALESHA, OOB, eating, feels good Objective-Diagnostic Laboratory: 09/26/17 06:16 09/26/17 09/26/17 09/26/17 06:16 06:16 08:35 WBC 14.6 H RBC 4.59 Hgb 13.3 Hct 38.8 MCV 85 MCH 29.0 MCHC 34.3 RDW 13.1 Plt Count 272 Seg Neutrophils % 71.9 Lymphocytes % 21.5 Monocytes % 5.1 Eosinophils % 0.8 Basophils % 0.7 Absolute Neutrophils 10.5 H Absolute Lymphocytes 3.1 Absolute Monocytes 0.7 Absolute Eosinophils 0.1 Absolute Basophils 0.1 Urine Color JOAQUIN Urine Appearance SLIGHTLY-CLOUDY Urine pH 5.0 Ur Specific [place] 1.019 Urine Protein 100 H Urine Glucose (UA) NEGATIVE Urine Ketones TRACE H Urine Blood LARGE H Urine Nitrite NEGATIVE Ur Leukocyte Esterase NEGATIVE Blood Type A POSITIVE Antibody Screen NEGATIVE Assessment and Plan(PN) - Assessment and Plan (1) Benzodiazepine abuse Is this a current diagnosis for this admission?: Yes (2) Meconium passage during delivery Is this a current diagnosis for this admission?: Yes (3) Precipitate labor, delivered, current hospitalization Is this a current diagnosis for this admission?: Yes - Time Spent with Patient Time with patient: Less than 15 minutes Medications reviewed and adjusted accordingly: Yes - Disposition Anticipated Discharge: Home Within: Other - home today, discussed d/c instructions, watch for bleeding, declines Motrin for pain
--- NOTE | 2017-09-26 09:42 | PDOC DISCHARGE SUMMARY ---
Final Diagnosis Discharge Date: 09/26/17 - Final Diagnosis (1) Benzodiazepine abuse Is this a current diagnosis for this admission?: Yes (2) Meconium passage during delivery Is this a current diagnosis for this admission?: Yes (3) Precipitate labor, delivered, current hospitalization Is this a current diagnosis for this admission?: Yes Discharge Data - Discharge Medication Home Medications: Alprazolam [Xanax] 1 mg PO TID PRN 06/24/17 Omeprazole Magnesium [Prilosec Otc] 20 mg PO DAILY 06/24/17 Gestational Age: 40.2 Reason(s) for Admission: Onset of Labor Intrapartum Procedure(s): Spontaneous Vaginal Delivery - Data Baby 1 Male Home with Mother: No Complications: Yes - meconium aspiration, on Vent, being transferred to [facility] - Diagnosis Test Laboratory: 09/26/17 09/26/17 06:16 08:35 RBC 4.59 Hgb 13.3 Hct 38.8 Urine Opiates Screen NEGATIVE - Discharge information/Instructions Discharge Activity: No Lifting Over 10 Pounds, No Lifting/Push/Pulling, Pelvic Rest Discharge Diet: As Tolerated, Regular Disposition: HOME, SELF-CARE Follow up with: [facility] in: 4, Weeks
[2017-09-26] MEDS ORDERED: FAMOTIDINE 20 MG TABLET PO SCH (10:00)
[2017-09-26] MEDS ORDERED: FERROUS SULFATE 325 MG TABLET PO SCH (10:00)
[2017-09-26] MEDS ORDERED: SENNOSIDES/DOCUSATE 8.6-50 MG 1 EACH TABLET PO SCH (10:00)
[2017-09-26] MEDS ORDERED: PRENATAL VITAMIN W DHA CAPSULE PO SCH (10:00)
[2017-09-26] MEDS ORDERED: DOCUSATE SODIUM 100 MG CAPSULE PO SCH (10:00)
[2017-09-26] MEDS ORDERED: IBUPROFEN 800 MG TABLET PO SCH (14:00)
== END 2017-09-26 11:15 | disposition home or self-care (01) | DRG 775 ==
LOC: LC 05:55 → LR 06:05
PROVIDERS: ADMIT Student in an Organized Health Care Education/Training Program; ATTEND Student in an Organized Health Care Education/Training Program
PROC: 10E0XZZ Delivery of Products of Conception, External Approach (ICD-10-PCS; principal; 2017-09-26)
PROC: 10907ZC Drainage of Amniotic Fluid, Therapeutic from Products of Conception, Via Natural or Artificial Opening (ICD-10-PCS; 2017-09-26)
PROC: 4A1HXCZ Monitoring of Products of Conception, Cardiac Rate, External Approach (ICD-10-PCS; 2017-09-26)
DX: O62.3 Precipitate labor (principal); O99.324 Drug use complicating childbirth; O77.0 Labor and delivery complicated by meconium in amniotic fluid; F13.10 Sedative, hypnotic or anxiolytic abuse, uncomplicated; O99.334 Smoking (tobacco) complicating childbirth; F17.210 Nicotine dependence, cigarettes, uncomplicated; O99.344 Other mental disorders complicating childbirth; F41.9 Anxiety disorder, unspecified; F31.9 Bipolar disorder, unspecified; Z3A.40 40 weeks gestation of pregnancy; Z37.0 Single live birth
CPT/HCPCS: 36415; 80307; 81005; 85025; 86592; 86850; 86900; 86901; 88307; 90715; J2590; J3490

== ENCOUNTER → 2018-03-06 | Outpatient (CLI) | payer MEDICAID ==
--- NOTE | 2018-03-06 12:36 | RADIOLOGY REPORT (SQ) ---
EXAM DESCRIPTION: MRI LUMBAR SPINE WITHOUT COMPLETED DATE/TIME: 03/06/2018 11:33 am REASON FOR STUDY: OTHER SPONDYLOSIS, LUMBOSACRAL REGION(M47.897), OTHER FX T7-T8 (S22.068S) S22.068S OTHER FRACTURE OF T7-T8 THORACIC VERTEBRA, SEQUELA M47.897 OTHER SPONDYLOSIS, LUMBOSACRAL REGION COMPARISON: None. TECHNIQUE: Sagittal and Axial imaging includes T1, T2, STIR and gradient echo sequences. Coronal T2/ HASTE imaging. LIMITATIONS: None. FINDINGS: VISUALIZED UPPER ABDOMEN: Limited evaluation. No acute or suspicious findings suggested. SEGMENTATION: No transitional anatomy. The lowest well-developed disc space is labeled L5-S1. ALIGNMENT: Anatomic. VERTEBRAE: Intact. BONE MARROW: Fatty reactive vertebral body endplate changes at L5-S1 DISC SIGNAL: Decreased T2 weighted intervertebral disc signal at L1-2, L2-3, L4-5, and L5-S1 POSTERIOR ELEMENTS: Generally intact. No pars defect evident. HARDWARE: None in the spine. CORD AND CONUS: Normal in size and signal intensity. Conus at the mid L1 level. SOFT TISSUES: No aortic aneurysm seen. No bulky retroperitoneal adenopathy or mass. No paraspinal mas s or fluid. T11-12: At the upper edge of the field of view. Mild bilateral facet hypertrophy. No central or fo raminal stenosis. T12-L1: No central or foraminal stenosis. L1-L2: Broad diffuse posterior disc bulging is present with mild bilateral facet and ligament hypertr ophy. No central or foraminal stenosis. L2-L3: Broad diffuse posterior disc bulge and moderate bilateral facet and ligament hypertrophy is pr esent without significant central or foraminal stenosis L3-L4: Moderate bilateral facet hypertrophy. No significant central canal narrowing. Mild bilateral inferior foraminal narrowing without exiting L3 nerve root impingement. L4-L5: Broad diffuse posterior disc bulging and moderate bilateral facet hypertrophy. No central augustus nosis. Mild bilateral inferior foraminal narrowing without exiting L4 nerve root impingement L5-S1: Moderate-sized central disc protrusion effaces the ventral epidural fat and abuts the ventral thecal sac at the takeoff of the bilateral S1 nerve roots without nerve root impingement. This is be st shown on axial T2 image 29, and axial T1 image 19. Elsewhere at L5-S1, there is mild right and moderate left foraminal narrowing without definite exitin g L5 nerve root impingement. SACRUM: Visualized upper sacrum intact. OTHER: No other significant findings. IMPRESSION: Diffuse degenerative changes as above TECHNICAL DOCUMENTATION: JOB ID: [id number] [employer]- All Rights Reserved Reading location - IP/workstation name: [facility]
--- NOTE | 2018-03-06 12:43 | RADIOLOGY REPORT (SQ) ---
EXAM DESCRIPTION: MRI THORACIC SPINE WITHOUT COMPLETED DATE/TIME: 03/06/2018 11:33 am REASON FOR STUDY: OTHER SPONDYLOSIS, LUMBOSACRAL REGION(M47.897), OTHER FX T7-T8 (S22.068S) S22.068S OTHER FRACTURE OF T7-T8 THORACIC VERTEBRA, SEQUELA M47.897 OTHER SPONDYLOSIS, LUMBOSACRAL REGION COMPARISON: MRI lumbar spine 03/06/2018 TECHNIQUE: Sagittal and Axial imaging includes T1, T2, STIR and gradient echo sequences. LIMITATIONS: None. FINDINGS: LOCALIZER: No worrisome findings. ALIGNMENT: Normal. VERTEBRAE: Intact. BONE MARROW: Normal. No marrow replacement or reactive changes. HARDWARE: None in the spine. CORD: Normal in size and signal intensity. SOFT TISSUES: No soft tissue masses. THORACIC DISCS T1-T12: No disc herniations or significant central stenosis. There is bulky bilateral facet arthropathy at T6-7, T7-8, T8-9, and T9-10 causing moderate bilateral foraminal narrowing at these levels. LOWER CERVICAL: Incompletely imaged. No significant spinal stenosis or exit foraminal stenosis. OTHER: No other significant finding. IMPRESSION: Midthoracic spine facet arthropathy with moderate bilateral foraminal narrowing from T6- 7 through T9-10 as above. TECHNICAL DOCUMENTATION: JOB ID: [id number] [employer]- All Rights Reserved Reading location - IP/workstation name: [facility]
== END ==
LOC: RAD 10:08
PROVIDERS: ATTEND Physician Assistant
DX: S22.068S Other fracture of T7-T8 thoracic vertebra, sequela (principal); M47.897 Other spondylosis, lumbosacral region; X58.XXXS Exposure to other specified factors, sequela
CPT/HCPCS: 72146; 72148

== ENCOUNTER 2018-07-18 15:35 | Emergency (ER) | payer MEDICAID ==
[2018-07-18 16:06] VITALS: BP 116/62
--- NOTE | 2018-07-18 16:31 | ER Document Report ---
ED Medical Screen (RME) - General Chief Complaint: Drug Abuse Stated Complaint: PSYCH EVAL Time Seen by Provider: 07/18/18 16:16 Primary Care Provider: COURTNEY ALONZO PA-C [Primary Care Provider] - Follow up as needed Mode of Arrival: Ambulatory Information source: Patient TRAVEL OUTSIDE OF THE [place] IN LAST 30 DAYS: No - HPI Notes: 07/18/18 16:27 33-year-old female presents to the ED with her mother for complaints of withdrawing from Xanax, states she has been prescribed 1 mg tablet 3 times daily #80, was prescribed in July 05 already out, provider prescribing first Dr. Trevino, at [facility]. Patient states that she is sick of taking them and wants to get off of them but she does not want to withdraw again", states that she "goes to this every month and he never gives me enough", referring to Dr. Trevino. reports she is experiencing nausea vomiting and diarrhea, denies any illicit drug use. exam: s1, s2, regular, lungs CTA, no abd tenderness. alert, awake and orientated. I have greeted and performed a rapid initial assessment of this patient. A comprehensive ED assessment and evaluation of the patient, analysis of test results and completion of medical decision making process will be conducted by an additional ED providers. - Related Data Allergies/Adverse Reactions: No Known Allergies Allergy (Verified 07/18/18 15:38) Past Medical History - Social History Frequency of alcohol use: None Drug Abuse: Prescription drugs Family history: None Endocrine Medical History: Denies: Hx Diabetes Mellitus Type 2 Renal/ Medical History: Denies: Hx Peritoneal Dialysis Psychiatric Medical History: Reports: Hx Anxiety, Hx Bipolar Disorder, Hx Depression - Immunizations Immunizations up to date: Yes Hx Diphtheria, Pertussis, Tetanus Vaccination: Yes - 01/08/13 Physical Exam - Vital signs Vitals: Temp Pulse Resp BP Pulse Ox 98.4 F 78 16 116/62 95 07/18/18 16:04 07/18/18 16:04 07/18/18 16:04 07/18/18 16:04 07/18/18 16:04 Course - Vital Signs Vital signs: Temp Pulse Resp BP Pulse Ox 98.4 F 78 16 116/62 95 07/18/18 16:04 07/18/18 16:04 07/18/18 16:04 07/18/18 16:04 07/18/18 16:04 Doctor's Discharge - Discharge Referrals: COURTNEY ALONZO PA-C [Primary Care Provider] - Follow up as needed
[2018-07-18 16:57] LABS: ABSOLUTE BASOPHILS # (AUTO) 0.1 10^3/uL (0.0-0.2); ABSOLUTE EOSINOPHILS # (AUTO) 0.2 10^3/uL (0.0-0.6); ABSOLUTE LYMPHOCYTES (AUTO) 2.8 10^3/uL (0.5-4.7); ABSOLUTE MONOCYTES (AUTO) 0.5 10^3/uL (0.1-1.4); ABSOLUTE NEUT (AUTO) 6.9 10^3/uL (1.7-8.2); BASOPHILS % (AUTO) 0.6 % (0-2); EOSINOPHILS % (AUTO) 1.8 % (0-6); HEMATOCRIT 40.4 % (36.0-47.0); HEMOGLOBIN 13.8 g/dL (12.0-15.5); LYMPHOCYTES % (AUTO) 26.9 % (13-45); MEAN CORPUSCULAR HEMOGLOBIN 29.6 pg (27.0-33.4); MEAN CORPUSCULAR HGB CONC 34.2 g/dL (32.0-36.0); MEAN CORPUSCULAR VOLUME 87 fl (80-97); MONOCYTES % (AUTO) 5.1 % (3-13); PLATELET COUNT 233 10^3/uL (150-450); RED BLOOD COUNT 4.67 10^6/uL (3.72-5.28); RED CELL DISTRIBUTION WIDTH 14.9 % (11.5-14.0); SEGMENTED NEUTROPHILS % (AUTO) 65.6 % (42-78); TOTAL CELLS COUNTED % (AUTO) 100 %; WHITE BLOOD COUNT 10.5 10^3/uL (4.0-10.5)
[2018-07-18 17:06] LABS: ALANINE AMINOTRANSFERASE 17 U/L (9-52); ALBUMIN 4.6 g/dL (3.5-5.0); ALKALINE PHOSPHATASE 66 U/L (38-126); ANION GAP 6 (5-19); ASPARTATE AMINO TRANSFERASE 30 U/L (14-36); BILIRUBIN,DIRECT 0.2 mg/dL (0.0-0.4); BILIRUBIN,TOTAL 0.5 mg/dL (0.2-1.3); BLOOD UREA NITROGEN 8 mg/dL (7-20); CALCIUM 10.5 mg/dL (8.4-10.2); CARBON DIOXIDE 32 mmol/L (22-30); CHLORIDE 103 mmol/L (98-107); GLUCOSE 88 mg/dL (75-110); POTASSIUM 4.3 mmol/L (3.6-5.0); SODIUM 141.3 mmol/L (137-145); TOTAL PROTEIN 7.6 g/dL (6.3-8.2)
[2018-07-18 17:07] LABS: ACETAMINOPHEN < 10 ug/mL (10-30); ALCOHOL < 10 mg/dL (NONE DETECTED); SALICYLATE < 1.0 mg/dL (2.0-20.0)
[2018-07-18 17:12] LABS: APPEARANCE,URINE CLOUDY; BILIRUBIN,URINE NEGATIVE (NEGATIVE); COLOR,URINE AMBER; GLUCOSE, URINE NEGATIVE (NEGATIVE); KETONES,URINE NEGATIVE (NEGATIVE); LEUKOCYTE ESTERASE,URINE NEGATIVE (NEGATIVE); NITRITE,URINE NEGATIVE (NEGATIVE); PROTEIN,URINE NEGATIVE (NEGATIVE); URINE SPECIFIC GRAVITY 1.012
[2018-07-18 17:18] LABS: URINE AMPHETAMINES SCREEN NEGATIVE; URINE BARBITURATES SCREEN NEGATIVE; URINE BENZODIAZEPINES SCREEN UNCONFIRMED POSITIVE; URINE COCAINE SCREEN NEGATIVE; URINE MARIJUANA (THC) SCREEN NEGATIVE; URINE METHADONE SCREEN NEGATIVE; URINE PHENCYCLIDINE SCREEN NEGATIVE
[2018-07-18] MEDS ORDERED: ALPRAZOLAM 0.5 MG TABLET PO ONE (18:42)
--- NOTE | 2018-07-18 19:10 | ER Document Report ---
ED General - General Chief Complaint: Drug Abuse Stated Complaint: PSYCH EVAL Time Seen by Provider: 07/18/18 16:16 Primary Care Provider: COURTNEY ALONZO PA-C [Primary Care Provider] - Follow up as needed Mode of Arrival: Ambulatory Information source: Patient, Relative, Outside Facility Records Notes: There is a 3-year-old female with a history of depression, anxiety presents with complaints of body aches, nausea, diarrhea. Patient states that she is withdrawing from Xanax. Reports that she has been on Xanax for over 8 years. She states that she is prescribed 3 1 mg tablets of Xanax daily but admits to taking 5-6 Xanax per day. Patient's provider told the patient that he would not refill the prescription early. She states that she wants detox. Patient denies fever, chills, nausea, vomiting, chest pain, shortness of breath, seizure activity. Mother accompanies her and states that the patient does not want her children to "see her like this. TRAVEL OUTSIDE OF THE [place] IN LAST 30 DAYS: No - HPI Onset: Other Onset/Duration: Gradual Quality of pain: Achy Associated symptoms: Body/muscle aches, Chills, Diarrhea, Nausea, Vomiting Exacerbated by: Denies Relieved by: Denies Similar symptoms previously: No Recently seen / treated by doctor: Yes - Related Data Allergies/Adverse Reactions: No Known Allergies Allergy (Verified 07/18/18 15:38) Past Medical History - General Information source: Patient - Social History Smoking Status: Current Every Day Smoker Cigarette use (# per day): Yes - 10 Smoking Education Provided: Yes - Smoking cessation counseling was provided for 4 minutes at the bedside Frequency of alcohol use: None Drug Abuse: Prescription drugs Lives with: Family Family History: Reviewed & Not Pertinent Patient has suicidal ideation: No Patient has homicidal ideation: No Endocrine Medical History: Denies: Hx Diabetes Mellitus Type 2 Renal/ Medical History: Denies: Hx Peritoneal Dialysis Psychiatric Medical History: Reports: Hx Anxiety, Hx Bipolar Disorder, Hx Depression - Immunizations Immunizations up to date: Yes Hx Diphtheria, Pertussis, Tetanus Vaccination: Yes - 01/08/13 Review of Systems - Review of Systems Notes: REVIEW OF SYSTEMS: CONSTITUTIONAL : Denies fever, or sweats. Denies recent illness. Denies weight loss, recent hospitalizations. EENT: Denies visual changes, eye pain. Denies sore throat, oral lesions, difficulty swallowing. CARDIOVASCULAR: Denies chest pain. Denies palpitations. Denies lower extremity edema. RESPIRATORY: Denies cough. Denies shortness of breath, wheezing. GASTROINTESTINAL: Denies abdominal pain or distention. Denies blood in vomitus, stools, or per rectum. Denies black, tarry stools. Denies constipation. GENITOURINARY: Denies difficulty urinating, painful urination, frequency, blood in urine, or vaginal discharge. MUSCULOSKELETAL: Denies back or neck pain or stiffness. Denies joint pain or swelling. SKIN: Denies rash, lesions or sores. HEMATOLOGIC : Denies easy bruising or bleeding. LYMPHATIC: Denies swollen glands. NEUROLOGICAL: Denies confusion or altered mental status. Denies loss of consciousness. Denies dizziness or lightheadedness. Denies headache. Denies weakness or paralysis. Denies problems difficulty with ambulation, slurred sp eech. Denies sensory loss, numbness, or tingling. Denies seizures. PSYCHIATRIC: Denies anxiety or stress. Denies depression, suicidal ideation, or homicidal ideation. Denies visual or auditory hallucinations. Physical Exam - Vital signs Vitals: Temp Pulse Resp BP Pulse Ox 98.4 F 78 16 116/62 95 07/18/18 16:04 07/18/18 16:04 07/18/18 16:04 07/18/18 16:04 07/18/18 16:04 - Notes Notes: PHYSICAL EXAMINATION: GENERAL: Well-appearing, well-nourished and in no acute distress. HEAD: Atraumatic, normocephalic. EYES: Pupils equal round and reactive to light, extraocular movements intact, conjunctiva are normal. ENT: Nares patent, oropharynx clear without exudates. Moist mucous membranes. NECK: Normal range of motion, supple without lymphadenopathy LUNGS: Breath sounds clear to auscultation bilaterally and equal. No wheezes rales or rhonchi. HEART: Regular rate and rhythm without murmurs ABDOMEN: Soft, nontender, nondistended abdomen. No guarding, no rebound. No masses appreciated. Female : deferred Musculoskeletal: Normal range of motion, no pitting or edema. No cyanosis. NEUROLOGICAL: Cranial nerves grossly intact. Normal speech, normal gait. Normal sensory, motor exams PSYCH: Normal mood, normal affect. SKIN: Warm, Dry, normal turgor, no rashes or lesions noted. Course - Re-evaluation Re-evalutation: Temp Pulse Resp BP Pulse Ox 98.4 F 78 16 116/62 95 07/18/18 16:04 07/18/18 16:04 07/18/18 16:04 07/18/18 16:04 07/18/18 16:04 07/19/18 18:39 33-year-old female with benzodiazepine addiction/abuse presents with complaints of body ache, nausea, vomiting, diarrhea and increased anxiety. Patient's prescription databank was reviewed and showed that the patient received 81 mg tablets of Xanax on July. Patient is prescribed 1 mg every 8 hours as needed and she has been taking 5-6/day. Her prescribing provider will not provide her an additional prescription at this time and she is here with request for detox. She states that she went to the opioid crisis center who sent her here. I did discuss the patient's options which were 1-stay and be evaluated by behavioral health in the morning for medication recommendations, 2-receive 1 dose of Xanax today really only to avoid potential seizure activity and follow-u p with her [facility] provider or 3-use the resources that I have provided for her and check herself into outpatient rehab. I did place a consult with our social service assistant to provide the patient with additional options as her mother states that the [facility] facility is "terrible". I did explain that we do not do detox in this hospital. I also explained that the patient is abusing her prescription medication and would likely face reluctant providers to provide her any more. Patient did receive 1 mg of Xanax in the emergency department and was discharged home in stable condition. She had normal vital signs, appears comfortable and laying in the stretcher with her mother. Patient was discharged home in stable condition. - Vital Signs Vital signs: Temp Pulse Resp BP Pulse Ox 98.4 F 78 16 116/62 95 07/18/18 16:04 07/18/18 16:04 07/18/18 16:04 07/18/18 16:04 07/18/18 16:04 - Laboratory Result Diagrams: 07/18/18 16:30 07/18/18 16:30 Laboratory results interpreted by me: 04/07/18/18 07/18/18 16:30 16:30 16:35 RDW 14.9 H Carbon Dioxide 32 H Calcium 10.5 H Urine Urobilinogen 2.0 H Urine Ascorbic Acid 40 H Salicylates < 1.0 L Acetaminophen < 10 L Discharge - Discharge Clinical Impression: Benzodiazepine abuse Condition: Good Disposition: HOME, SELF-CARE Instructions: Benzodiazepines ([facility]) Additional Instructions: Please follow-up with the provider who has been prescribing use Xanax to form a plan to be weaned off of the medication. You can also contact [facility] at [phone]. I have placed a consult with our social service assistant who will contact you tomorrow to provide you further resources. Follow up with your [id number] hours for further care or return to the ED IMMEDIATELY if symptoms worsen or you have any concerns. If you cannot afford to follow up with your primary care physician a list of low cost clinics have been provided at the end of your discharge papers as well. Most prescribed medications have multiple side effects. The safest thing to do is when filling your prescription speak to your pharmacist regarding possible interactions with your normal home medications and over the counter medications such as Ibuprofen, Tylenol, Benadryl. If you experience any symptoms that cause you discomfort or concern you should discontinue the medication immediately and return to the emergency room or call your primary care physician. Referrals: COURTNEY ALONZO PA-C [Primary Care Provider] - Follow up as needed
--- NOTE | 2018-07-18 21:50 | EKG REPORT ---
SEVERITY:- NORMAL ECG - SINUS RHYTHM : Confirmed by: Anastasia Small MD 18-Jul-2018 21:50:10
== END 2018-07-18 20:00 | disposition home or self-care (01) ==
LOC: ER 15:35
DX: F19.10 Other psychoactive substance abuse, uncomplicated (principal); M79.10 Myalgia, unspecified site; R11.2 Nausea with vomiting, unspecified; R19.7 Diarrhea, unspecified; F17.210 Nicotine dependence, cigarettes, uncomplicated
CPT/HCPCS: 93005; 99284; 36415; 80307 ×4; 85025; 81025; 80053; 81001; 93010; J3490

== ENCOUNTER 2018-09-19 18:43 | Emergency (ER) | payer OTHER ==
[2018-09-19 19:58] VITALS: BP 112/54
== END 2018-09-20 | disposition left against medical advice (07) ==
LOC: ER 18:43
DX: Z53.21 Procedure and treatment not carried out due to patient leaving prior to being seen by health care provider (principal); M25.539 Pain in unspecified wrist

== ENCOUNTER 2018-10-09 05:15 | Emergency (ER) | payer MEDICAID, OTHER ==
[2018-10-09] MEDS ORDERED: ONDANSETRON 4 MG TAB.RAPDIS PO ONE (05:47)
--- NOTE | 2018-10-09 05:50 | ER Document Report ---
Doctor's Note Notes: 10/09/18 05:48 Patient is a 33-year-old female who presents after having 5 nausea vomiting. She says she does not member last few days. She says that she remembers on Saturdays that she started to use heroin and methamphetamine. Per able to report her 12-year-old was when I called 911. Charge nurse informs me that the technical specialist's department is aware of the kids at the house. Patient herself refuses any blood work or work up at this time. She says she is nauseous and has some epigastric pain also has a headache. She request something for the nausea. Patient is awake and alert and answers all questions appropriately at this time. She does not have any focal neurologic deficits. Current heart rate is in the 80s. Blood pressure is 134/78. I have ordered the Zofran. Dictation of this chart was performed using voice recognition software; therefore, there may be some unintended grammatical errors. 10/09/18 05:50
--- NOTE | 2018-10-09 07:18 | ER Document Report ---
ED General - General Chief Complaint: Drug Abuse Stated Complaint: DRUG ABUSE, HEADACHE Time Seen by Provider: 10/09/18 05:47 TRAVEL OUTSIDE OF THE [place] IN LAST 30 DAYS: No - HPI Notes: Patient is a 33-year-old female that presents to the emergency department for chief complaint of substance abuse. Patient's 12-year-old son called EMS today stating that his mother has been using heroin and methamphetamine all weekend. Patient does endorse snorting heroin and smoking ice. She states she has a history of abuse with pills but has never used heroin or methamphetamine in the past. She states she does not know why she started using heavier drugs this weekend. She states she remembers Monday but feels like she blacked out on Monday. She denies any suicidal or self harming ideations. She does states she has bipolar disorder and has been off her medications. Currently she is complaining of nausea and vomiting. She denies shortness of breath, chest pain, palpitations, abdominal pain, dysuria fevers and chills. Past Medical History: Bipolar Past Surgical History: Reviewed in chart Social History: Heroin abuse. Methamphetamine abuse. Tobacco abuse. Occasional alcohol. Family History: Reviewed and noncontributory for presenting illness Allergies: Reviewed, see documented allergy list. REVIEW OF SYSTEMS: CONSTITUTIONAL : No fever No chills No diaphoresis No recent illness EENT: No vision changes No congestion No sore throat CARDIOVASCULAR: No chest pain No palpitations RESPIRATORY: No shortness of breath No cough No difficulty breathing GASTROINTESTINAL: No abdominal pain nausea vomiting No diarrhea GENITOURINARY: No dysuria No hematuria No difficulty urinating MUSCULOSKELETAL: No back pain No leg pain No arm pain SKIN: No rashes No lesions LYMPHATIC: No swollen, enlarged glands. NEUROLOGICAL: No lightheadedness No headache No weakness No paresthesias PSYCHIATRIC: No anxiety No depression PHYSICAL EXAMINATION: Vital signs reviewed, nursing noted reviewed. GENERAL: Well-appearing, well-nourished and in no acute distress. HEAD: Atraumatic, normocephalic. EYES: Eyes appear normal, extraocular movements intact, sclera anicteric, conjunctiva are normal. ENT: nares patent, oropharynx clear without exudates. Moist mucous membranes. NECK: Normal range of motion, supple without lymphadenopathy LUNGS: Breath sounds clear to auscultation bilaterally and equal. No wheezes rales or rhonchi. HEART: Regular rate and rhythm without murmurs ABDOMEN: Soft, nontender, normoactive bowel sounds. No rebound, guarding, or rigidity. No masses appreciated. EXTREMITIES: Nontender, good range of motion, no pitting or edema. NEUROLOGICAL: No focal neurological deficits. Moves all extremities spontaneously Motor and sensory grossly intact on exam. PSYCH: Tearful, normal affect. SKIN: Warm, Dry, normal turgor, no rashes or lesions noted on exposed skin - Related Data Allergies/Adverse Reactions: No Known Allergies Allergy (Verified 09/19/18 18:46) Past Medical History - Social History Smoking Status: Unknown if Ever Smoked Drug Abuse: Heroin, Methamphetamine, Prescription drugs Family History: Reviewed & Not Pertinent Patient has suicidal ideation: No Patient has homicidal ideation: No Endocrine Medical History: Denies: Hx Diabetes Mellitus Type 2 Renal/ Medical History: Denies: Hx Peritoneal Dialysis Psychiatric Medical History: Reports: Hx Anxiety, Hx Bipolar Disorder, Hx Depression - Immunizations Immunizations up to date: Yes Hx Diphtheria, Pertussis, Tetanus Vaccination: Yes - 01/08/13 Physical Exam - Vital signs Vitals: Pulse Ox 100 10/09/18 05:20 Course - Re-evaluation Re-evalutation: 10/09/18 07:14 Vitals reviewed. Nursing notes reviewed. Nursing catalyst supervisor has notified me that police are contacting child protective services and are assisting with patient's child at home. Patient is awake, alert and oriented. She is in no acute distress. She received antinausea medication in the emergency room and has tolerated eating ice chips and drinking water. Her vital signs are stable. She is refusing to have an IV placed. Patient has an unremarkable EKG. She is otherwise stable. Her symptoms are likely related to her heavy drug use this weekend. She denies any homicidal or suicidal ideations. She will be referred to [facility] for further psychiatric care and management of her substance abuse. Patient told to return to the emergency room for new or w orsening symptoms. She was told to stop using illicit drugs. She is stable at discharge. 10/09/18 07:15 - Vital Signs Vital signs: Temp Pulse Resp BP Pulse Ox 98.4 F 19 134/78 H 100 10/09/18 05:30 10/09/18 05:30 10/09/18 05:30 10/09/18 05:30 - EKG Interpretation by Me Additional EKG results interpreted by me: 10/09/18 07:14 Interpreted by myself [id number]: Normal sinus rhythm, rate 70, normal axis, no ectopy, no STEMI Discharge - Discharge Clinical Impression: Methamphetamine abuse, Opiate abuse, episodic Condition: Stable Disposition: HOME, SELF-CARE Additional Instructions: Stop using methamphetamine and opiate drugs. Be sure to drink enough water daily to stay hydrated. Eight 8 ounce glasses a day is recommended. Take the Zofran as needed for nausea Contact [facility] for help with your substance abuse and bipolar medications Please return to the emergency department if you have any worsening, or concern of your symptoms. Please return to the emergency department if you develop chest pain, difficulty breathing, severe abdominal pain, or ongoing vomiting. Please follow-up with your primary care physician in 2-3 days and any other recommended physicians. If prescribed, take all medications as directed. If you have any questions or concerns do not hesitate to return the emergency department for evaluation. Prescriptions: Ondansetron [Zofran Odt 4 mg Tablet] 1 tab PO Q4H PRN #15 tab.rapdis PRN Reason: For Nausea/Vomiting Referrals: [facility] [Provider Group] - Follow up as needed
[2018-10-09 07:19] VITALS: BP 121/74
--- NOTE | 2018-10-09 11:24 | EKG REPORT ---
SEVERITY:- NORMAL ECG - SINUS RHYTHM : Confirmed by: Anastasia Small MD 09-Oct-2018 11:22:39
== END 2018-10-09 07:45 | disposition home or self-care (01) ==
LOC: ER 05:15
DX: F19.10 Other psychoactive substance abuse, uncomplicated (principal); F11.10 Opioid abuse, uncomplicated; R11.2 Nausea with vomiting, unspecified; E11.9 Type 2 diabetes mellitus without complications
CPT/HCPCS: 93005; 99283; 93010; S0119

== ENCOUNTER 2018-10-09 13:15 | Emergency (ER) | payer MEDICAID ==
[2018-10-09] MEDS ORDERED: NORMAL SALINE 1000 ML 1,000 ML IV ONE (13:40)
--- NOTE | 2018-10-09 13:41 | ER Document Report ---
ED Medical Screen (RME) - General Chief Complaint: Nausea/Vomiting Stated Complaint: VOMITING Time Seen by Provider: 10/09/18 13:39 Mode of Arrival: Ambulatory Information source: Patient Notes: Patient presents complaining of nausea vomiting and abdominal pain. Patient reports that her hands and feet feel numb. Patient is withdrawing from heroin and methamphetamine. Patient states she was seen here earlier but she lied about her use habits. Patient was given Zofran per EMS. I have greeted and performed a rapid initial assessment of this patient. A comprehensive ED assessment and evaluation of the patient, analysis of test results and completion of the medical decision making process will be conducted by additional ED providers. TRAVEL OUTSIDE OF THE [place] IN LAST 30 DAYS: No - Related Data Allergies/Adverse Reactions: No Known Allergies Allergy (Verified 10/09/18 13:21) Past Medical History - Social History Family history: None Endocrine Medical History: Denies: Hx Diabetes Mellitus Type 2 Renal/ Medical History: Denies: Hx Peritoneal Dialysis Psychiatric Medical History: Reports: Hx Anxiety, Hx Bipolar Disorder, Hx Depression - Immunizations Immunizations up to date: Yes Hx Diphtheria, Pertussis, Tetanus Vaccination: Yes - 01/08/13 Physical Exam - Vital signs Vitals: Temp Pulse Resp BP Pulse Ox 97.4 F 69 20 137/85 H 100 10/09/18 13:10/09/18 13:10/09/18 13:10/09/18 13:31 10/09/18 13:31 - Abdominal Tenderness: Tender - Generalized abdomen Course - Vital Signs Vital signs: Temp Pulse Resp BP Pulse Ox 97.4 F 69 20 137/85 H 100 10/09/18 13:31 10/09/18 13:31 10/09/18 13:31 10/09/18 13:31 10/09/18 13:31
[2018-10-09 14:14] LABS: ABSOLUTE LYMPHOCYTES (AUTO) 1.5 10^3/uL (0.5-4.7); ABSOLUTE MONOCYTES (AUTO) 0.3 10^3/uL (0.1-1.4); ABSOLUTE NEUT (AUTO) 7.9 10^3/uL (1.7-8.2); BASOPHILS % (AUTO) 0.3 % (0-2); EOSINOPHILS % (AUTO) 0.2 % (0-6); HEMATOCRIT 46.2 % (36.0-47.0); HEMOGLOBIN 15.5 g/dL (12.0-15.5); LYMPHOCYTES % (AUTO) 15.3 % (13-45); MEAN CORPUSCULAR HEMOGLOBIN 28.7 pg (27.0-33.4); MEAN CORPUSCULAR HGB CONC 33.5 g/dL (32.0-36.0); MEAN CORPUSCULAR VOLUME 86 fl (80-97); MONOCYTES % (AUTO) 3.4 % (3-13); PLATELET COUNT 218 10^3/uL (150-450); RED CELL DISTRIBUTION WIDTH 14.4 % (11.5-14.0); SEGMENTED NEUTROPHILS % (AUTO) 80.8 % (42-78); TOTAL CELLS COUNTED % (AUTO) 100 %; WHITE BLOOD COUNT 9.7 10^3/uL (4.0-10.5)
[2018-10-09 14:29] LABS: ALANINE AMINOTRANSFERASE 19 U/L (9-52); ALBUMIN 4.9 g/dL (3.5-5.0); ALKALINE PHOSPHATASE 103 U/L (38-126); ANION GAP 14 (5-19); ASPARTATE AMINO TRANSFERASE 26 U/L (14-36); BILIRUBIN,DIRECT 0.3 mg/dL (0.0-0.4); BILIRUBIN,TOTAL 0.8 mg/dL (0.2-1.3); BLOOD UREA NITROGEN 3 mg/dL (7-20); CALCIUM 10.4 mg/dL (8.4-10.2); CARBON DIOXIDE 17 mmol/L (22-30); CHLORIDE 112 mmol/L (98-107); GLUCOSE 123 mg/dL (75-110); LIPASE 56.1 U/L (23-300); POTASSIUM 3.6 mmol/L (3.6-5.0); SODIUM 143.3 mmol/L (137-145); TOTAL PROTEIN 8.3 g/dL (6.3-8.2)
[2018-10-09] MEDS ORDERED: RINGERS SOLUTION,LACTATED 1,000 ML IV ONE (16:41)
[2018-10-09] MEDS ORDERED: CLONIDINE 0.1 MG/24 HR PATCH.TDWK TD ONE (16:58)
[2018-10-09] MEDS ORDERED: DIPHENHYDRAMINE HCL 50 MG/ML VIAL IV ONE (17:18)
[2018-10-09] MEDS ORDERED: METOCLOPRAMIDE HCL INJ/PF 10 MG/2 ML SDV IV ONE (17:18)
--- NOTE | 2018-10-09 17:18 | ER Document Report ---
ED General - General Chief Complaint: Nausea/Vomiting Stated Complaint: VOMITING Time Seen by Provider: 10/09/18 13:39 Primary Care Provider: [facility] [Provider Group] - Follow up as needed [facility] [Provider Group] - Follow up in 3-5 days Mode of Arrival: Ambulatory Notes: Patient is a 33-year-old female that presents to the emergency department for chief complaint of nausea and vomiting. Patient states she is withdrawing from heroin, she also used crystal meth she thinks is about a day and a half ago, she is never had withdrawal like this, but she usually does not have a long period of time in between using heroin. She uses on a daily basis. She states that she wants to get clean and get better she was seen earlier today, was given Zofran but has not been helping so she decided come back to the emergency department. She states she cannot keep anything down, and feels that she is getting very dehydrated. She is had some abdominal cramping, and diarrhea as well, with a mild headache. No other complaints at this time. Past Medical History: Depression, anxiety, bipolar disorder, multi-substance abuse disorder Past Surgical History: Denies any recent surgical history Social History: Admits to smoking, denies alcohol use, admits to regular heroin use, and methamphetamine use. Family History: Reviewed and noncontributory for presenting illness Allergies: Reviewed, see documented allergy list. REVIEW OF SYSTEMS: Other than noted above, the 12 point review of systems was reviewed with the patient and were negative, all pertinent findings are included in the HPI. PHYSICAL EXAMINATION: Vital signs reviewed, nursing noted reviewed. GENERAL: Patient appears uncomfortable on exam, dry heaving. HEAD: Atraumatic, normocephalic. EYES: Eyes appear normal, extraocular movements intact, sclera anicteric, conjunctiva are normal. ENT: nares patent, oropharynx clear without exudates. Moist mucous membranes. NECK: Normal range of motion, supple without lymphadenopathy LUNGS: Breath sounds clear to auscultation bilaterally and equal. No wheezes rales or rhonchi. HEART: Regular rate and rhythm without murmurs ABDOMEN: Soft, mild diffuse abdominal tenderness, no focal tenderness, normoactive bowel sounds. No rebound, guarding, or rigidity. No masses appreciated. EXTREMITIES: Nontender, good range of motion, no pitting or edema. NEUROLOGICAL: No focal neurological deficits. Moves all extremities spontaneously Motor and sensory grossly intact on exam. PSYCH: Normal mood, normal affect. SKIN: Warm, Dry, normal turgor, no rashes or lesions noted on exposed skin TRAVEL OUTSIDE OF THE [place] IN LAST 30 DAYS: No - Related Data Allergies/Adverse Reactions: No Known Allergies Allergy (Verified 10/09/18 13:21) Past Medical History - General Information source: Patient - Social History Smoking Status: Current Every Day Smoker Chew tobacco use (# tins/day): No Frequency of alcohol use: Rare Drug Abuse: Heroin, Methamphetamine Family History: Reviewed & Not Pertinent Patient has suicidal ideation: No Patient has homicidal ideation: No Endocrine Medical History: Denies: Hx Diabetes Mellitus Type 2 Renal/ Medical History: Denies: Hx Peritoneal Dialysis Psychiatric Medical History: Reports: Hx Anxiety, Hx Bipolar Disorder, Hx Depression - Immunizations Immunizations up to date: Yes Hx Diphtheria, Pertussis, Tetanus Vaccination: Yes - 01/08/13 Physical Exam - Vital signs Vitals: Temp Pulse Resp BP Pulse Ox 97.4 F 69 20 137/85 H 100 10/09/18 13:31 10/09/18 13:31 10/09/18 13:31 10/09/18 13:31 10/09/18 13:31 Course - Re-evaluation Re-evalutation: Patient seen and examined vital signs reviewed. Laboratory data and/or imaging were ordered as appropriate for the patient's presenting symptoms and complaint, with consideration of any critical or life threatening conditions that may be associated with their obtained history and exam as noted above. Patient was treated with IV fluids, Zofran by EMS, but not improved, therefore she is given more IV fluid, and IV Reglan and a low dose of Benadryl Results were reviewed when available and demonstrated ketones in the urine, she did have a mild metabolic acidosis, likely from patient's vomiting. The patient was re-evaluated and was stable, improved, vomiting had stopped, and she was overall feeling better. Evaluation was most consistent with opiate withdrawal, nausea, vomiting and diarrhea. Patient was given clonidine patch 0.1 mg, and prescribed Reglan. Did asked the patient if she was taking any psychiatric medications and she denies at this time. Results were discussed with the patient at this point, after careful consideration I feel that that patient can be discharged from the emergency department, the patient was educated treatments and reasons to return to the emergency department based on their presumed diagnosis as noted above, they were advised to followup with a primary care physician in 2-3 days. Patient was agr eeable to plan of care. *Note is created using voice recognition software and may contain spelling, syntax or grammatical errors. Laboratory 10/09/18 10/09/18 14:02 14:02 WBC 9.7 RBC 5.40 H Hgb 15.5 Hct 46.2 MCV 86 MCH 28.7 MCHC 33.5 RDW 14.4 H Plt Count 218 Seg Neutrophils % 80.8 H Lymphocytes % 15.3 Monocytes % 3.4 Eosinophils % 0.2 Basophils % 0.3 Absolute Neutrophils 7.9 Absolute Lymphocytes 1.5 Absolute Monocytes 0.3 Absolute Eosinophils 0.0 Absolute Basophils 0.0 Sodium 143.3 Potassium 3.6 Chloride 112 H Carbon Dioxide 17 L Anion Gap 14 BUN 3 L Creatinine 0.54 Est GFR ( Amer) > 60 Est GFR (Non-Af Amer) > 60 Glucose 123 H Calcium 10.4 H Total Bilirubin 0.8 Direct Bilirubin 0.3 Neonat Total Bilirubin Not Reportable Neonat Direct Bilirubin Not Reportable Neonat Indirect Bili Not Reportable AST 26 ALT 19 Alkaline Phosphatase 103 Total Protein 8.3 H Albumin 4.9 Lipase 56.1 - Vital Signs Vital signs: Temp Pulse Resp BP Pulse Ox 97.6 F 76 18 146/99 H 100 10/09/18 19:14 10/09/18 19:14 10/09/18 19:14 10/09/18 19:14 10/09/18 19:14 - Laboratory Result Diagrams: 10/09/18 14:02 10/09/18 14:02 Laboratory results interpreted by me: 10/09/18 10/09/18 14:02 14:02 RBC 5.40 H RDW 14.4 H Seg Neutrophils % 80.8 H Chloride 112 H Carbon Dioxide 17 L BUN 3 L Glucose 123 H Calcium 10.4 H Total Protein 8.3 H Discharge - Discharge Clinical Impression: Opiate withdrawal Nausea and vomiting Qualifiers: Vomiting type: unspecified Vomiting Intractability: non-intractable Qualified Code(s): R11.2 - Nausea with vomiting, unspecified Condition: Stable Disposition: HOME, SELF-CARE Instructions: Vomiting ([facility]) Additional Instructions: You may have symptoms of withdrawal over the next 2 to 3 days, they should improve after that, it all depends on how much and how often you used opiates and methamphetamines. You have been prescribed emetics for nausea and vomiting, as well as the medication for withdrawal symptoms, the patch that was applied can be left on a total of 1 week. Please follow-up with the rehab facilities offered in the area. Prescriptions: Metoclopramide HCl [Reglan 10 mg Tablet] 10 mg PO Q8H PRN #15 tablet PRN Reason: Referrals: [facility] [Provider Group] - Follow up as needed [facility] [Provider Group] - Follow up in 3-5 days
[2018-10-09 19:15] VITALS: BP 146/99
== END 2018-10-09 19:16 | disposition home or self-care (01) ==
LOC: ER 13:15
DX: F11.23 Opioid dependence with withdrawal (principal); R11.2 Nausea with vomiting, unspecified; F19.10 Other psychoactive substance abuse, uncomplicated; F17.200 Nicotine dependence, unspecified, uncomplicated
CPT/HCPCS: 99284; 96361; 96374; 96375; 36415; 83690; 85025; 80053; J1200; J2765; J7030; J7120; J3490